=== PATIENT | female | born 1940 | race Caucasian/White ===

== ENCOUNTER → 2016-08-25 | Outpatient (CLI) | payer MEDICARE ==
[2016-08-26 12:06] LABS: ANA SCREEN NEGATIVE (Negative)
[2016-08-27 19:06] LABS: ARSENIC BLOOD 7 ug/L (2-23); LEAD BLOOD None Detected ug/dL (0-19); MERCURY BLOOD None Detected ug/L (0.0-14.9)
== END | disposition home or self-care (01) ==
LOC: CFH 13:49
PROVIDERS: ATTEND Psychiatry & Neurology Neurology
DX: F03.90 Unspecified dementia, unspecified severity, without behavioral disturbance, psychotic disturbance, mood disturbance, and anxiety (principal)
CPT/HCPCS: 36415; 82175; 82390; 82525; 82607; 82746; 83655; 83825; 84443; 85651; 86038

== ENCOUNTER → 2016-11-30 | Outpatient (CLI) | payer MEDICARE | END | disposition home or self-care (01) | LOC: CFH 11:06 | PROVIDERS: ATTEND Nurse Practitioner Family | DX: S62.397A Other fracture of fifth metacarpal bone, left hand, initial encounter for closed fracture (principal); M19.042 Primary osteoarthritis, left hand; S00.83XA Contusion of other part of head, initial encounter; W01.0XXA Fall on same level from slipping, tripping and stumbling without subsequent striking against object, initial encounter; Y93.89 Activity, other specified; Y92.89 Other specified places as the place of occurrence of the external cause; Y99.8 Other external cause status | CPT/HCPCS: 70150 ==